=== PATIENT | female | born 1995 | race Caucasian/White ===

== ENCOUNTER 2019-08-30 08:22 | Emergency (ER) | payer BC, MEDICAID ==
--- NOTE | 2019-08-30 08:57 | EDM.PDOC ---
ED HPI GENERAL MEDICAL PROBLEM - General Stated Complaint: POSSIBLE BLOOD CLOT IN ARM Time Seen by Provider: 08/30/19 08:50 Source of Information: Reports: Patient History Limitations: Reports: No Limitations - History of Present Illness INITIAL COMMENTS - FREE TEXT/NARRATIVE: Patient presented to the ED because of multiple complains: she think she has a blood on her left arm because she couldn't feel her pulse. There is no pain, swelling and changes in skin color. She also thinks abel she has skin cancer because there are bumps on her skin which looks more of prickly heat. - Related Data Allergies Allergy/AdvReac Type Severity Reaction Status Date / Time No Known Allergies Allergy Verified 08/30/19 09:06 Home Meds: Home Meds NK [No Known Home Meds] 08/30/19 [History] ED ROS GENERAL - Review of Systems Review Of Systems: See Below Constitutional: Reports: No Symptoms HEENT: Reports: No Symptoms Respiratory: Reports: No Symptoms Cardiovascular: Reports: No Symptoms Endocrine: Reports: No Symptoms GI/Abdominal: Reports: No Symptoms : Reports: No Symptoms Musculoskeletal: Reports: No Symptoms Skin: Denies: Change in Color Neurological: Reports: No Symptoms Psychiatric: Reports: Anxiety ED EXAM, GENERAL - Physical Exam Exam: See Below Exam Limited By: No Limitations General Appearance: Alert, No Apparent Distress Ears: Normal External Exam Nose: Normal Inspection, Normal Mucosa Throat/Mouth: Normal Inspection, Normal Lips Head: Atraumatic, Normocephalic Neck: Normal Inspection Respiratory/Chest: No Respiratory Distress, Lungs Clear, Normal Breath Sounds Cardiovascular: Normal Peripheral Pulses, Regular Rate, Rhythm GI/Abdominal: Normal Bowel Sounds, Soft, Non-Tender Back Exam: Normal Inspection, Full Range of Motion Extremities: Normal Inspection, Normal Range of Motion Neurological: Alert, Oriented, CN II-XII Intact Psychiatric: Normal Affect Course - Vital Signs Text/Narrative:: reassurance Last Recorded V/S: Last Vital Signs Temp 37.0 C 08/30/19 08:43 Pulse 75 08/30/19 08:43 Resp 18 08/30/19 08:43 BP 113/72 08/30/19 08:43 Pulse Ox 99 08/30/19 08:43 Departure - Departure Time of Disposition: 09:00 Disposition: Home, Self-Care 01 Condition: Good Clinical Impression: Hypochondriasis, Somatization disorder - Discharge Information Referrals: Vanesa Clifford PA-C [Primary Care Provider] - Forms: ED Return to Work/School Form Additional Instructions: please read discharge instruction on DVT follow up as needed Sepsis Event Note (ED) - Focused Exam Vital Signs: Vital Signs Temp Pulse Resp BP Pulse Ox 08/30/19 08:43 37.0 C 75 18 113/72 99
== END 2019-08-30 09:15 | disposition home or self-care (01) ==
LOC: FB.ED 08:22
DX: F45.21 Hypochondriasis (principal); F45.9 Somatoform disorder, unspecified
CPT/HCPCS: 99282

== ENCOUNTER 2021-05-17 13:44 | Emergency (ER) | payer BC, MEDICAID | END 2021-05-17 15:35 | disposition home or self-care (01) | LOC: FB.ED 13:44 | DX: R00.0 Tachycardia, unspecified (principal); T50.905A Adverse effect of unspecified drugs, medicaments and biological substances, initial encounter; F41.0 Panic disorder [episodic paroxysmal anxiety] | CPT/HCPCS: 99283; 99284 ==